=== PATIENT | female | born 1980 | race African-American/Black ===

== ENCOUNTER 2016-09-18 11:23 | Emergency (ER) | payer OTHER ==
[~2016-09-18] VITALS: Ht 175.3 cm; Wt 132.4 kg
[~2016-09-18 11:23] MED LIST: CARAFATE 1 GM TA1 G1 PO; CIPROFLOXACIN500 M1 PO; CLONAZEPAM 1 MG1 M1 PO; COMPAZINE5 MG PO; DESYREL100 MG PO; FLAGYL500 MG PO; GLYCOLAX POWDER17 G1 PO; IBUPROFEN 600600 M1 PO; LANTUS100 UNIT/M SUBQ; METFORMIN HCL500 MG PO; NORCO 5-325 TA1 EACH PO; PERCOCET 7.5-51 EACH; PHENERGAN 25 MG25 M1 PO; PROTONIX40 M2 PO; REGLAN 10 MG TA10 MG PO; ULTRAM 50MG TAB50 MG PO; VICODIN 5-5001 EACH PO; WELLBUTRIN SR150 MG PO; ZOCOR40 MG PO; ZOFRAN ODT4 MG PO; ZOFRAN4 MG PO; ZOLOFT100 MG PO
[2016-09-18] MEDS ORDERED: TESSALON PERLE100 MG PO (12:07)
[2016-09-18] MEDS ORDERED: FLONASE 0.05%50 MCG NASAL (12:07)
[2016-09-18] MEDS ORDERED: IBUPROFEN 600600 M1 PO (12:07)
[2016-09-18 12:26] VITALS: BP 126/76
== END 2016-09-18 12:28 | disposition home or self-care (01) ==
LOC: ER 11:23
DX: J01.90 Acute sinusitis, unspecified (principal); J06.9 Acute upper respiratory infection, unspecified; F17.210 Nicotine dependence, cigarettes, uncomplicated; F10.99 Alcohol use, unspecified with unspecified alcohol-induced disorder; F12.10 Cannabis abuse, uncomplicated; Z88.5 Allergy status to narcotic agent; Z90.49 Acquired absence of other specified parts of digestive tract

== ENCOUNTER 2016-10-01 07:25 | Emergency (ER) | payer OTHER ==
[~2016-10-01] VITALS: Ht 175.3 cm; Wt 130.2 kg
[~2016-10-01 07:25] MED LIST changes: +FLONASE 0.05%50 MCG NASAL; +TESSALON PERLE100 MG PO
[2016-10-01 08:39] VITALS: BP 138/69
[2016-10-01] MEDS ORDERED: AUGMENTIN 875-1 EACH PO (08:58)
[2016-10-01] MEDS ORDERED: IBUPROFEN 800800 M1 PO (08:58)
== END 2016-10-01 09:14 | disposition home or self-care (01) ==
LOC: ER 07:25
DX: J01.10 Acute frontal sinusitis, unspecified (principal); Z88.6 Allergy status to analgesic agent; F17.210 Nicotine dependence, cigarettes, uncomplicated; F10.99 Alcohol use, unspecified with unspecified alcohol-induced disorder

== ENCOUNTER 2017-08-02 04:40 | Emergency (ER) | payer OTHER ==
[~2017-08-02] VITALS: Ht 175.3 cm; Wt 146.5 kg
[~2017-08-02 04:40] MED LIST changes: +AUGMENTIN 875-1 EACH PO; +IBUPROFEN 800800 M1 PO
[2017-08-02] MEDS ORDERED: VICTOZA0.6 MG/0.1 SUBQ (04:46)
[2017-08-02 05:12] LABS: URINE BILIRUBIN NEGATIVE (Negative); URINE BLOOD NEGATIVE (Negative); URINE COLOR YELLOW; URINE GLUCOSE-RANDOM* NEGATIVE (Negative); URINE KETONES NEGATIVE (Negative); URINE LEUKOCYTES-REFLEX NEGATIVE (Negative); URINE PROTEIN (DIPSTICK) NEGATIVE (Negative); URINE SPECIFIC GRAVITY >= 1.030 (1.003-1.035); URINE UROBILINOGEN 0.2 E.U./dl (0.2-1.0)
[2017-08-02 05:19] LABS: ABSOLUTE NEUTROPHILS 2.9 thou/uL (1.4-8.2); BASOPHILS 0.9 % (0.0-2.0); EOSINOPHILS 0.9 % (0.0-3.0); HEMATOCRIT 40.7 % (37.0-47.0); HEMOGLOBIN 13.2 gm/dL (12.0-15.0); LYMPHOCYTES 40.4 % (24.0-44.0); MCH 27.8 pg (26.0-34.0); MCHC 32.3 g/dL (28.0-37.0); MCV 85.9 fL (80.0-100.0); PLATELET COUNT 159 thou/uL (150-400); POLYS 47.8 % (36.0-66.0); RBC 4.73 mil/uL (4.20-5.00); RDW 14.9 % (10.5-14.5); WBC 6.1 thou/uL (4.0-11.0)
[2017-08-02 05:22] LABS: MANUAL DIFF NO
[2017-08-02 05:25] LABS: CALCIUM 8.5 mg/dL (8.5-10.1); CREATININE 0.9 mg/dL (0.6-1.0)
[2017-08-02 05:31] LABS: ALBUMIN 3.1 g/dL (3.4-5.0); TOTAL BILIRUBIN 0.4 mg/dL (<0.1-1.0); TOTAL PROTEIN 6.8 g/dL (6.4-8.2)
[2017-08-02] MEDS ORDERED: NAPROSYN500 MG PO (08:51)
[2017-08-02] MEDS ORDERED: NORCO 7.5-3251 EACH PO (08:51)
[2017-08-02] MEDS ORDERED: SENNA-DOCUSATE1 EACH PO (08:51)
[2017-08-02 09:04] VITALS: BP 103/44
== END 2017-08-02 09:05 | disposition home or self-care (01) ==
LOC: ER 04:40
PROVIDERS: Emergency Medicine
DX: K57.90 Diverticulosis of intestine, part unspecified, without perforation or abscess without bleeding (principal); R19.00 Intra-abdominal and pelvic swelling, mass and lump, unspecified site; Z90.49 Acquired absence of other specified parts of digestive tract; Z98.890 Other specified postprocedural states; N80.9 Endometriosis, unspecified; Z88.5 Allergy status to narcotic agent; F17.210 Nicotine dependence, cigarettes, uncomplicated

== ENCOUNTER 2018-03-26 14:43 | Emergency (ER) | payer OTHER ==
[~2018-03-26] VITALS: Ht 172.7 cm; Wt 147.0 kg
[~2018-03-26 14:43] MED LIST changes: +NAPROSYN500 MG PO; +NORCO 7.5-3251 EACH PO; +SENNA-DOCUSATE1 EACH PO; +VICTOZA0.6 MG/0.1 SUBQ
[2018-03-26 15:09] LABS: URINE BILIRUBIN NEGATIVE (Negative); URINE BLOOD NEGATIVE (Negative); URINE CLARITY CLEAR; URINE COLOR YELLOW; URINE GLUCOSE-RANDOM* 2+ (Negative); URINE KETONES 3+ (Negative); URINE LEUKOCYTES-REFLEX NEGATIVE (Negative); URINE NITRITE-REFLEX NEGATIVE (Negative); URINE PROTEIN (DIPSTICK) 1+ (Negative); URINE SPECIFIC GRAVITY >= 1.030 (1.005-1.035); URINE UROBILINOGEN 0.2 E.U./dl (0.2-1.0)
[2018-03-26 15:19] LABS: BACTERIA-REFLEX 1-9 Few /HPF (None Seen); CASTS None Seen /LPF (None Seen); CRYSTALS None Seen /LPF (None Seen); SQUAMOUS >10 Many /LPF (0-3); URINE WBC-REFLEX 0-5 Rare /HPF (0-5)
[2018-03-26 15:20] LABS: URINE RBC 0-2 Rare /HPF (0-2)
[2018-03-26 15:53] LABS: ABSOLUTE NEUTROPHILS 9.3 thou/uL (1.4-8.2); BASOPHILS 0.5 % (0.0-2.0); LYMPHOCYTES 13.4 % (24.0-44.0); MCH 29.1 pg (26.0-34.0); MCHC 34.1 g/dL (28.0-37.0); MCV 85.5 fL (80.0-100.0); MONOCYTES 2.6 % (1.0-8.0); PLATELET COUNT 147 thou/uL (150-400); POLYS 83.5 % (36.0-66.0); RBC 5.14 mil/uL (4.20-5.00); RDW 14.4 % (10.5-14.5); WBC 11.1 thou/uL (4.0-11.0)
[2018-03-26 16:10] LABS: CALCIUM 8.7 mg/dL (8.5-10.1); CREATININE 0.8 mg/dL (0.6-1.0); POTASSIUM 3.9 mmol/L (3.5-5.1)
[2018-03-26 16:15] LABS: ALBUMIN 3.5 g/dL (3.4-5.0); TOTAL BILIRUBIN 0.4 mg/dL (<0.1-1.0); TOTAL PROTEIN 7.7 g/dL (6.4-8.2)
[2018-03-26] MEDS ORDERED: PHENERGAN 25 MG25 M1 PO (18:02)
[2018-03-26 18:36] VITALS: BP 129/64
== END 2018-03-26 18:40 | disposition home or self-care (01) ==
LOC: ER 14:43
PROVIDERS: Nurse Practitioner Family
DX: F12.188 Cannabis abuse with other cannabis-induced disorder (principal); Z90.49 Acquired absence of other specified parts of digestive tract; Z98.890 Other specified postprocedural states; F17.210 Nicotine dependence, cigarettes, uncomplicated; Z88.5 Allergy status to narcotic agent

== ENCOUNTER 2018-06-25 03:55 | Emergency (ER) | payer OTHER ==
[~2018-06-25] VITALS: Ht 175.3 cm; Wt 145.6 kg
[2018-06-25 04:16] LABS: URINE BILIRUBIN NEGATIVE (Negative); URINE BLOOD NEGATIVE (Negative); URINE CLARITY CLEAR; URINE COLOR YELLOW; URINE GLUCOSE-RANDOM* 3+ (Negative); URINE KETONES 3+ (Negative); URINE LEUKOCYTES-REFLEX NEGATIVE (Negative); URINE NITRITE-REFLEX NEGATIVE (Negative); URINE PROTEIN (DIPSTICK) NEGATIVE (Negative); URINE UROBILINOGEN 0.2 E.U./dl (0.2-1.0)
[2018-06-25 04:48] LABS: CALCIUM 9.6 mg/dL (8.5-10.1); CREATININE 1.1 mg/dL (0.6-1.0)
[2018-06-25 04:54] LABS: ALBUMIN 3.9 g/dL (3.4-5.0); MAGNESIUM 2.2 mg/dL (1.8-2.4); TOTAL BILIRUBIN 0.6 mg/dL (<0.1-1.0); TOTAL PROTEIN 8.4 g/dL (6.4-8.2)
[2018-06-25 05:37] LABS: ABSOLUTE NEUTROPHILS 7.1 thou/uL (1.4-8.2); BASOPHILS 0.5 % (0.0-2.0); HEMATOCRIT 45.1 % (37.0-47.0); HEMOGLOBIN 14.7 gm/dL (12.0-15.0); LYMPHOCYTES 13.4 % (24.0-44.0); MCH 28.3 pg (26.0-34.0); MCHC 32.6 g/dL (28.0-37.0); MCV 86.9 fL (80.0-100.0); MONOCYTES 2.3 % (1.0-8.0); PLATELET COUNT 173 thou/uL (150-400); POLYS 83.8 % (36.0-66.0); RBC 5.19 mil/uL (4.20-5.00); RDW 14.4 % (10.5-14.5); WBC 8.4 thou/uL (4.0-11.0)
[2018-06-25] MEDS ORDERED: LISINOPRIL-HCT1 EAC2 PO (07:13)
[2018-06-25] MEDS ORDERED: FARXIGA10 MG PO (07:14)
[2018-06-25] MEDS ORDERED: WELLBUTRIN XL300 MG PO (07:14)
[2018-06-25] MEDS ORDERED: BUSPIRONE HCL10 MG PO (07:15)
[2018-06-25] MEDS ORDERED: XANAX 0.25 MG0.25 MG PO (07:15)
[2018-06-25 07:49] LABS: CALCIUM 8.4 mg/dL (8.5-10.1); CREATININE 0.9 mg/dL (0.6-1.0); POTASSIUM 4.5 mmol/L (3.5-5.1)
[2018-06-25] MEDS ORDERED: PHENERGAN 25 MG25 M1 PO (08:29)
[2018-06-25] MEDS ORDERED: ZOFRAN ODT4 MG PO (08:29)
[2018-06-25] MEDS ORDERED: SENNA-DOCUSATE1 EACH PO (08:29)
[2018-06-25] MEDS ORDERED: NORCO 7.5-3251 EACH PO (08:29)
[2018-06-25] MEDS ORDERED: GLUCOTROL5 MG PO (08:42)
[2018-06-25 08:58] VITALS: BP 155/93
[2018-06-26] MEDS ORDERED: PANTOPRAZOLE SO40 M1 PO (10:33)
== END 2018-06-25 09:00 | disposition home or self-care (01) ==
LOC: ER 03:55
PROVIDERS: Emergency Medicine; Student in an Organized Health Care Education/Training Program
DX: G89.18 Other acute postprocedural pain (principal); R10.31 Right lower quadrant pain; R10.32 Left lower quadrant pain; R10.33 Periumbilical pain; F17.210 Nicotine dependence, cigarettes, uncomplicated; Z90.49 Acquired absence of other specified parts of digestive tract; Z88.5 Allergy status to narcotic agent; R11.2 Nausea with vomiting, unspecified

== ENCOUNTER 2018-06-25 13:43 | Inpatient (IN) | payer OTHER ==
[~2018-06-25] VITALS: Ht 175.3 cm; Wt 133.4 kg
[~2018-06-25 13:43] MED LIST changes: +BUSPIRONE HCL10 MG PO; +FARXIGA10 MG PO; +GLUCOTROL5 MG PO; +LISINOPRIL-HCT1 EAC2 PO; +WELLBUTRIN XL300 MG PO; +XANAX 0.25 MG0.25 MG PO
[2018-06-25 13:54] VITALS: BP 137/77
[2018-06-25 17:18] VITALS: BP 137/86
[2018-06-25 17:35] LABS: TSH 0.647 uIU/mL (0.358-3.740)
[2018-06-25 19:20] VITALS: BP 113/65
[2018-06-26 05:50] LABS: ABSOLUTE NEUTROPHILS 4.5 thou/uL (1.4-8.2); BASOPHILS 0.3 % (0.0-2.0); EOSINOPHILS 0.2 % (0.0-3.0); HEMATOCRIT 40.2 % (37.0-47.0); HEMOGLOBIN 13.5 gm/dL (12.0-15.0); LYMPHOCYTES 32.6 % (24.0-44.0); MCH 28.9 pg (26.0-34.0); MCHC 33.5 g/dL (28.0-37.0); MCV 86.1 fL (80.0-100.0); MONOCYTES 7.5 % (1.0-8.0); PLATELET COUNT 135 thou/uL (150-400); POLYS 59.4 % (36.0-66.0); RBC 4.67 mil/uL (4.20-5.00); RDW 14.6 % (10.5-14.5); WBC 7.5 thou/uL (4.0-11.0)
[2018-06-26 06:06] LABS: ALBUMIN 2.9 g/dL (3.4-5.0); CALCIUM 8.2 mg/dL (8.5-10.1); CREATININE 0.7 mg/dL (0.6-1.0); MAGNESIUM 2.2 mg/dL (1.8-2.4); POTASSIUM 3.6 mmol/L (3.5-5.1); TOTAL BILIRUBIN 0.6 mg/dL (<0.1-1.0); TOTAL PROTEIN 6.4 g/dL (6.4-8.2)
[2018-06-26 09:03] VITALS: BP 104/57
[2018-06-26] MEDS ORDERED: PANTOPRAZOLE SO40 M1 PO (10:33)
[2018-06-26 11:32] VITALS: BP 104/57
== END 2018-06-26 12:12 | disposition home or self-care (01) | DRG 638 ==
LOC: ER 13:43 → EROBS 15:05 → 4E 17:29
PROVIDERS: Nurse Practitioner
DX: E11.10 Type 2 diabetes mellitus with ketoacidosis without coma (principal); Z68.41 Body mass index [BMI] 40.0-44.9, adult; K57.90 Diverticulosis of intestine, part unspecified, without perforation or abscess without bleeding; I10 Essential (primary) hypertension; G89.29 Other chronic pain; M54.9 Dorsalgia, unspecified; F41.9 Anxiety disorder, unspecified; F32.9 Major depressive disorder, single episode, unspecified; E66.01 Morbid (severe) obesity due to excess calories; F12.10 Cannabis abuse, uncomplicated; Z71.51 Drug abuse counseling and surveillance of drug abuser; Z90.49 Acquired absence of other specified parts of digestive tract; Z88.6 Allergy status to analgesic agent; Z79.899 Other long term (current) drug therapy
CPT/HCPCS: 10183

== ENCOUNTER 2018-07-11 11:41 | Emergency (ER) | payer OTHER ==
[~2018-07-11] VITALS: Ht 175.3 cm; Wt 131.1 kg
[~2018-07-11 11:41] MED LIST changes: +PANTOPRAZOLE SO40 M1 PO
[2018-07-11 13:57] VITALS: BP 116/79
[2018-07-11] MEDS ORDERED: IBUPROFEN 800800 M1 PO (14:06)
== END 2018-07-11 14:20 | disposition home or self-care (01) ==
LOC: ER 11:41
DX: S93.491A Sprain of other ligament of right ankle, initial encounter (principal); S93.691A Other sprain of right foot, initial encounter; F17.210 Nicotine dependence, cigarettes, uncomplicated; I10 Essential (primary) hypertension; Z88.8 Allergy status to other drugs, medicaments and biological substances; Z88.5 Allergy status to narcotic agent; Z90.49 Acquired absence of other specified parts of digestive tract; Z98.890 Other specified postprocedural states; W10.9XXA Fall (on) (from) unspecified stairs and steps, initial encounter; Y92.89 Other specified places as the place of occurrence of the external cause; Y93.89 Activity, other specified; Y99.8 Other external cause status

== ENCOUNTER 2018-08-03 07:48 | Emergency (ER) | payer OTHER ==
[~2018-08-03] VITALS: Ht 175.3 cm; Wt 138.3 kg
[2018-08-03] MEDS ORDERED: PIOGLITAZONE15 MG (08:04)
[2018-08-03 08:21] LABS: ABSOLUTE NEUTROPHILS 4.9 thou/uL (1.4-8.2); BASOPHILS 0.6 % (0.0-2.0); EOSINOPHILS 0.1 % (0.0-3.0); HEMATOCRIT 46.9 % (37.0-47.0); LYMPHOCYTES 25.2 % (24.0-44.0); MCHC 34.2 g/dL (28.0-37.0); MCV 84.9 fL (80.0-100.0); MONOCYTES 4.5 % (1.0-8.0); PLATELET COUNT 208 thou/uL (150-400); POLYS 69.6 % (36.0-66.0); RBC 5.52 mil/uL (4.20-5.00); RDW 14.5 % (10.5-14.5); WBC 7.1 thou/uL (4.0-11.0)
[2018-08-03 08:36] LABS: CREATININE 0.9 mg/dL (0.6-1.0); POTASSIUM 3.7 mmol/L (3.5-5.1)
[2018-08-03 08:49] LABS: DIRECT BILIRUBIN 0.1 mg/dL (<0.1-0.3); TOTAL BILIRUBIN 0.3 mg/dL (<0.1-1.0); TOTAL PROTEIN 8.6 g/dL (6.4-8.2)
[2018-08-03 10:02] LABS: URINE BILIRUBIN NEGATIVE (Negative); URINE BLOOD NEGATIVE (Negative); URINE CLARITY CLEAR; URINE COLOR YELLOW; URINE GLUCOSE-RANDOM* 3+ (Negative); URINE KETONES 1+ (Negative); URINE LEUKOCYTES-REFLEX NEGATIVE (Negative); URINE NITRITE-REFLEX NEGATIVE (Negative); URINE PROTEIN (DIPSTICK) NEGATIVE (Negative); URINE SPECIFIC GRAVITY >= 1.030 (1.005-1.035); URINE UROBILINOGEN 0.2 E.U./dl (0.2-1.0)
[2018-08-03] MEDS ORDERED: ZOFRAN ODT4 MG PO (12:58)
[2018-08-03] MEDS ORDERED: NORCO 5-325 TA1 EACH PO (12:58)
[2018-08-03 13:05] VITALS: BP 147/80
== END 2018-08-03 13:16 | disposition home or self-care (01) ==
LOC: ER 07:48
PROVIDERS: Emergency Medicine
DX: N80.9 Endometriosis, unspecified (principal); R11.2 Nausea with vomiting, unspecified; F17.210 Nicotine dependence, cigarettes, uncomplicated; I10 Essential (primary) hypertension; Z88.8 Allergy status to other drugs, medicaments and biological substances; Z88.5 Allergy status to narcotic agent; Z90.49 Acquired absence of other specified parts of digestive tract; Z98.890 Other specified postprocedural states

== ENCOUNTER 2019-08-01 12:37 | Inpatient (IN) | payer OTHER ==
[~2019-08-01] VITALS: Ht 175.3 cm; Wt 156.9 kg
[2019-08-01 12:37] VITALS: BP 151/86
[~2019-08-01 12:37] MED LIST changes: +PIOGLITAZONE15 MG
[2019-08-01 13:41] LABS: ABSOLUTE NEUTROPHILS 6.3 thou/uL (1.4-8.2); BASOPHILS 0.5 % (0.0-2.0); EOSINOPHILS 0.1 % (0.0-3.0); HEMATOCRIT 44.4 % (37.0-47.0); HEMOGLOBIN 14.6 gm/dL (12.0-15.0); LYMPHOCYTES 23.1 % (24.0-44.0); MCH 27.9 pg (26.0-34.0); MCHC 32.9 g/dL (28.0-37.0); MCV 84.6 fL (80.0-100.0); MONOCYTES 4.9 % (1.0-8.0); PLATELET COUNT 241 thou/uL (150-400); POLYS 71.4 % (36.0-66.0); RBC 5.25 mil/uL (4.20-5.00); RDW 14.7 % (10.5-14.5); WBC 8.8 thou/uL (4.0-11.0)
[2019-08-01 13:53] LABS: CREATININE 0.8 mg/dL (0.6-1.0); POTASSIUM 5.1 mmol/L (3.5-5.1)
[2019-08-01 13:54] LABS: CALCIUM 10.2 mg/dL (8.5-10.1)
[2019-08-01 14:00] LABS: ALBUMIN 4.1 g/dL (3.4-5.0); TOTAL BILIRUBIN 0.4 mg/dL (<0.1-1.0); TOTAL PROTEIN 8.2 g/dL (6.4-8.2)
[2019-08-01 14:11] LABS: URINE BILIRUBIN NEGATIVE (Negative); URINE BLOOD NEGATIVE (Negative); URINE CLARITY CLEAR; URINE COLOR YELLOW; URINE GLUCOSE-RANDOM* NEGATIVE (Negative); URINE KETONES NEGATIVE (Negative); URINE LEUKOCYTES-REFLEX NEGATIVE (Negative); URINE NITRITE-REFLEX NEGATIVE (Negative); URINE PROTEIN (DIPSTICK) NEGATIVE (Negative); URINE UROBILINOGEN 0.2 E.U./dl (0.2-1.0)
[2019-08-01 16:07] VITALS: BP 149/95
[2019-08-01 19:33] VITALS: BP 135/83
[2019-08-01 19:41] VITALS: BP 144/73
[2019-08-01 20:05] VITALS: BP 143/69
[2019-08-02 04:21] VITALS: BP 126/57
[2019-08-02 06:05] LABS: ABSOLUTE NEUTROPHILS 8.1 thou/uL (1.4-8.2); BASOPHILS 0.2 % (0.0-2.0); HEMATOCRIT 43.7 % (37.0-47.0); HEMOGLOBIN 14.5 gm/dL (12.0-15.0); MCH 28.5 pg (26.0-34.0); MCHC 33.3 g/dL (28.0-37.0); MCV 85.7 fL (80.0-100.0); MONOCYTES 2.6 % (1.0-8.0); PLATELET COUNT 222 thou/uL (150-400); POLYS 83.2 % (36.0-66.0); RDW 14.5 % (10.5-14.5); WBC 9.7 thou/uL (4.0-11.0)
[2019-08-02 06:23] LABS: CALCIUM 9.2 mg/dL (8.5-10.1); CREATININE 0.9 mg/dL (0.6-1.0)
[2019-08-02 06:33] LABS: POTASSIUM 3.5 mmol/L (3.5-5.1)
[2019-08-02 07:09] VITALS: BP 118/46
--- NOTE | 2019-08-02 08:01 | EKG ---
[address] [place] [address] ELECTROCARDIOGRAM REPORT Name: MARK KOENIG Room #: 450-P ADM IN M.R.#: [id number] Admission: 08/01/19 Attend Phys: Asha Fry MD Discharge: Date of : 78 Report #: [id number] THIS REPORT FOR: //name// [facility] ED Test Date: 2019-08-01 Test Time: 14:15:32 Pat Name: MARK KOENIG Department: Room: [facility] Gender: F Heat Reader: Britany NAJERA : 1980 Requested By: Jere Alegre Order Number: [id number] MD: Vipin Lutz Measurements Intervals [place] Rate: 86 P: 78 [place]: 160 QRS: 55 QRSD: 103 T: 41 QT: 408 QTc: 488 Interpretive Statements Sinus rhythm Borderline prolonged QT interval No previous ECG available for comparison Electronically Signed On 08-02-2019 8:01:21 RAILROAD CROSSING PROTECTION MAINTAINER by Vipin Lutz [email or web address] <ELECTRONICALLY SIGNED> By: Vipin Lutz MD, [facility] 08/02/19 0801 1415 1415 Vipin Lutz MD, FACC /EPI
[2019-08-02] MEDS ORDERED: BENTYL 10 MG CA10 M1 PO (10:26)
[2019-08-02 11:13] VITALS: BP 118/46
[2019-08-02 13:53] VITALS: BP 118/46
== END 2019-08-02 14:49 | disposition home or self-care (01) | DRG 392 ==
LOC: ER 12:37 → 4W 15:48 → EROBS 15:48 → 4W 19:53
PROVIDERS: Emergency Medicine; Nurse Practitioner; ADMIT Hospitalist
DX: K52.9 Noninfective gastroenteritis and colitis, unspecified (principal); Z68.43 Body mass index [BMI] 50.0-59.9, adult; E11.9 Type 2 diabetes mellitus without complications; I10 Essential (primary) hypertension; G89.29 Other chronic pain; M54.9 Dorsalgia, unspecified; F17.210 Nicotine dependence, cigarettes, uncomplicated; F41.9 Anxiety disorder, unspecified; F32.9 Major depressive disorder, single episode, unspecified; E66.01 Morbid (severe) obesity due to excess calories; F12.10 Cannabis abuse, uncomplicated; R11.2 Nausea with vomiting, unspecified; E83.52 Hypercalcemia; Z90.49 Acquired absence of other specified parts of digestive tract; Z98.1 Arthrodesis status; Z88.6 Allergy status to analgesic agent; Y92.89 Other specified places as the place of occurrence of the external cause
CPT/HCPCS: 10047

== ENCOUNTER 2019-11-27 12:30 | Emergency (ER) | payer OTHER ==
[~2019-11-27] VITALS: Ht 175.3 cm; Wt 147.0 kg
[~2019-11-27 12:30] MED LIST changes: +BENTYL 10 MG CA10 M1 PO
[2019-11-27 13:37] LABS: BASOPHILS 0.9 % (0.0-2.0); EOSINOPHILS 0.8 % (0.0-3.0); HEMATOCRIT 42.4 % (37.0-47.0); LYMPHOCYTES 25.1 % (24.0-44.0); MCH 28.8 pg (26.0-34.0); MCV 87.5 fL (80.0-100.0); MONOCYTES 9.1 % (1.0-8.0); POLYS 64.1 % (36.0-66.0); RBC 4.84 mil/uL (4.20-5.00); WBC 6.7 thou/uL (4.0-11.0)
[2019-11-27 13:40] LABS: URINE BILIRUBIN NEGATIVE (Negative); URINE BLOOD NEGATIVE (Negative); URINE CLARITY CLEAR; URINE COLOR YELLOW; URINE GLUCOSE-RANDOM* NEGATIVE (Negative); URINE KETONES NEGATIVE (Negative); URINE LEUKOCYTES-REFLEX NEGATIVE (Negative); URINE NITRITE-REFLEX NEGATIVE (Negative); URINE PROTEIN (DIPSTICK) NEGATIVE (Negative); URINE SPECIFIC GRAVITY 1.015 (1.005-1.035); URINE UROBILINOGEN 0.2 E.U./dl (0.2-1.0)
[2019-11-27 13:45] LABS: CALCIUM 9.6 mg/dL (8.5-10.1); CREATININE 1.1 mg/dL (0.6-1.0); POTASSIUM 3.6 mmol/L (3.5-5.1)
[2019-11-27 13:50] LABS: AMP/METHAMP Negative (Negative); BARBITURATES Negative (Negative); BENZODIAZEPINES Negative (Negative); COCAINE Negative (Negative); METHADONE Negative (Negative); OPIATES Negative (Negative); PCP Negative (Negative)
[2019-11-27 13:50] LABS: ALBUMIN 3.6 g/dL (3.4-5.0); TOTAL BILIRUBIN 0.3 mg/dL (<0.1-1.0); TOTAL PROTEIN 7.4 g/dL (6.4-8.2)
[2019-11-27 14:02] LABS: PLATELET COUNT 155 thou/uL (150-400)
[2019-11-27] MEDS ORDERED: PHENERGAN 25 MG25 M1 PO (16:30)
[2019-11-27 16:40] VITALS: BP 132/96
--- NOTE | 2019-11-28 07:54 | EKG ---
[facility] [place] [address] [place] [address] ELECTROCARDIOGRAM REPORT Name: MARK KOENIG Room #: DEP [facility]#: [id number] Admission: 11/27/19 Attend Phys: Discharge: 11/27/19 Date of : 78 Report #: [id number] THIS REPORT FOR: cc: Raysa Barnes MD, Teresa MD Lundgren,Vipin Mark MD [facility] THIS REPORT FOR: //name// 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
== END 2019-11-27 16:40 | disposition home or self-care (01) ==
LOC: ER 12:30
PROVIDERS: Physician Assistant
DX: R10.12 Left upper quadrant pain (principal); R11.2 Nausea with vomiting, unspecified; F12.90 Cannabis use, unspecified, uncomplicated; I10 Essential (primary) hypertension; Z87.891 Personal history of nicotine dependence; Z88.5 Allergy status to narcotic agent; Z98.890 Other specified postprocedural states; Z98.51 Tubal ligation status; Z90.49 Acquired absence of other specified parts of digestive tract

== ENCOUNTER 2020-04-10 09:41 | Inpatient (IN) | payer OTHER ==
[~2020-04-10] VITALS: Ht 175.3 cm; Wt 141.5 kg
--- NOTE | ~2020-04-10 | P ---
[facility] [place] [address] [place] [address] PROCEDURE REPORT Name: MARK KOENIG Room #: [facility] IN M.R.#: [id number] Admission: 04/10/20 Attend Phys: Asha Fry MD Discharge: 04/12/20 Date of : 78 Report #: [id number] THIS REPORT FOR: cc: Raysa Barnes MD, Teresa MD Thesing, John A. MD ~ CC: Asha Barnes INPATIENT UPPER ENDOSCOPY REPORT BRIEF HISTORY: The patient is a 39-year-old woman with a long history of nausea and vomiting. PREOPERATIVE DIAGNOSES: 1. Nausea and vomiting. 2. Intermittent solid food dysphagia. POSTOPERATIVE DIAGNOSES: 1. Grade B erosive esophagitis. 2. Ndtydhst-ta-zjdmta pangastritis. 3. Small amount of retained bile in the stomach. 4. Patchy bulbar duodenitis. MEDICATIONS: Deep sedation with propofol per Anesthesia. SPECIMEN: Biopsies of gastritis. ESTIMATED BLOOD LOSS: 3 mL. PROCEDURE: EGD with biopsy, Young dilation. FINDINGS: Prior to propofol sedation, procedure of upper endoscopy and dilation was discussed with the patient as well as potential risks and its complications. She indicates she understands and desire that we proceed. DESCRIPTION OF PROCEDURE: With the patient in left lateral decubitus position, the Olympus video endoscope was inserted into the cervical esophagus under direct vision without difficulty. Examination of this organ through its entire length revealed normal esophageal mucosa down to the squamocolumnar junction. The mucosa was intact, but there were several erosions extending up from the squamocolumnar junction consistent with a grade B erosive esophagitis. There was no evidence of Hartman's mucosa, strictures or masses. She has complaints of dysphagia, but no strictures or rings were seen. A significant hiatus hernia was not present. The scope was advanced into the stomach, was examined on end view as well as retroflexed views. There was a pattern of a nukjefxa-lm-wqtiuv diffuse gastritis involving essentially the mucosa of the entire stomach. There [facility] [address] [place] [address] PROCEDURE REPORT Name: MARK KOENIG Room #: 212-[facility] IN M.R.#: [id number] Admission: 04/10/20 Attend Phys: Asha Fry MD Discharge: 04/12/20 Date of : 78 Report #: [id number] was also a small pool of bile into the fundus of stomach. No ulcers were seen. Upon retroflexion, no mass lesions were seen. Examination of the distal stomach also revealed diffuse gastritis. The pylorus, duodenal bulb, and postbulbar duodenal sweep were inspected. There was noted to be some patchy mucosal change in the duodenal bulb. The mucosa was intact and no ulcers were seen. At that point, the scope was slowly withdrawn and careful circumferential views confirmed the above findings. The patient tolerated the procedure well. Following procedure, she was dilated with passage of a 54-British Young dilator due to her complaints of dysphagia. There was no resistance. DISPOSITION: The patient with nausea and vomiting. Again, her history is fairly complex with chronic nausea and vomiting and also diabetes, use of narcotics and cannabis use. She has nausea and vomiting all the time. It does not occur in discrete episodes, so I doubt this represents cyclic vomiting syndrome. At this point in time, we will try to treat symptomatically. First of all, we will have her use a PPI twice daily. Secondly, since there was bile stained in the stomach and she has had a previous cholecystectomy, we will add sucralfate. Certainly, we will use transdermal scopolamine patch and also use ondansetron as needed. A gastric emptying study is a consideration, but she chronically uses narcotics, which will make interpretation of abnormal gastric emptying study very difficult. By: 1123 1228 Rock Salcido MD /ashely
[2020-04-10 10:01] VITALS: BP 152/90
[2020-04-10 11:14] LABS: BASOPHILS 0.4 % (0.0-2.0); EOSINOPHILS 0.3 % (0.0-3.0); HEMATOCRIT 46.4 % (37.0-47.0); HEMOGLOBIN 15.6 gm/dL (12.0-15.0); LYMPHOCYTES 13.7 % (24.0-44.0); MCH 28.7 pg (26.0-34.0); MCHC 33.6 g/dL (28.0-37.0); MCV 85.7 fL (80.0-100.0); PLATELET COUNT 250 thou/uL (150-400); POLYS 80.6 % (36.0-66.0); RBC 5.42 mil/uL (4.20-5.00); RDW 14.5 % (10.5-14.5); WBC 11.2 thou/uL (4.0-11.0)
[2020-04-10 12:27] LABS: ALBUMIN 4.2 g/dL (3.4-5.0); CALCIUM 9.9 mg/dL (8.5-10.1); CREATININE 1.2 mg/dL (0.6-1.0); TOTAL BILIRUBIN 0.4 mg/dL (0.2-1.0); TOTAL PROTEIN 8.6 g/dL (6.4-8.2)
[2020-04-10 12:38] LABS: POTASSIUM 2.3 mmol/L (3.5-5.1)
[2020-04-10 13:37] LABS: URINE BLOOD NEGATIVE (Negative); URINE CLARITY CLEAR; URINE COLOR YELLOW; URINE GLUCOSE-RANDOM* NEGATIVE (Negative); URINE KETONES 1+ (Negative); URINE LEUKOCYTES-REFLEX NEGATIVE (Negative); URINE NITRITE-REFLEX NEGATIVE (Negative); URINE PROTEIN (DIPSTICK) 2+ (Negative)
[2020-04-10 13:55] LABS: ICTOTEST (BILI CONFIRMATORY) Negative (Negative); URINE BILIRUBIN NEGATIVE (Negative)
[2020-04-10 13:57] LABS: AMP/METHAMP Negative (Negative); BARBITURATES Negative (Negative); BENZODIAZEPINES POSITIVE (Negative); COCAINE Negative (Negative); METHADONE Negative (Negative); OPIATES Negative (Negative); PCP Negative (Negative)
[2020-04-10 14:41] LABS: MUCUS >6 Heavy strn/LPF (None Seen); SQUAMOUS >10 Many /LPF (0-3)
[2020-04-10 14:42] LABS: BACTERIA-REFLEX 1-9 Few /HPF (None Seen); CRYSTALS None Seen /LPF (None Seen); HYALINE CASTS 0-3 Few /LPF (None Seen); URINE RBC 0-2 Rare /HPF (0-2); URINE WBC-REFLEX 0-5 Rare /HPF (0-5)
[2020-04-10 14:44] VITALS: BP 100/61
[2020-04-10 15:03] VITALS: BP 96/63
[2020-04-10 15:15] VITALS: BP 121/72
[2020-04-10 15:30] VITALS: BP 121/72
--- NOTE | 2020-04-10 15:57 | EKG ---
[facility] [place] [address] [place] [address] ELECTROCARDIOGRAM REPORT Name: MARK KOENIG Room #: 212-P ADM IN M.R.#: [id number] Admission: 04/10/20 Attend Phys: Asha Fry MD Discharge: Date of : 78 Report #: [id number] THIS REPORT FOR: cc: Raysa Barnes MD, Teresa MD Couchonnal, Luis F. MD ~ THIS REPORT FOR: //name// [facility] ED Test Date: 2020-04-10 Test Time: 11:32:05 Pat Name: MARK KOENIG Department: Room: [facility] Gender: F Financial Operations Analyst: ANTONY : 1980 Requested By: Jere Alegre Order Number: [id number] MD: Barry Viramontes Measurements Intervals [place] Rate: 77 P: 60 [place]: 159 QRS: 53 QRSD: 105 T: 47 QT: 431 QTc: 488 Interpretive Statements Sinus rhythm Probable left atrial enlargement Borderline prolonged QT interval Compared to ECG 11/27/2019 13:18:28 No significant changes Electronically Signed On 04-10-2020 15:57:01 CDT by Barry Viramontes [email or web address] <ELECTRONICALLY SIGNED> By: Barry Viramontes MD 04/10/20 1557 1132 1132 Barry Viramontes MD /EPI
--- NOTE | 2020-04-10 17:58 | NUR ---
PT CARE ASSUMED AT 0700. ASSESSMENTS CHARTED. MEDICATION CHARTED. CT ABD WITH CONTRAST PERFORMED POST ORAL CONTRAST CONSUMED. PT REGULARLY REQUESTS PAIN MEDICATION.
--- NOTE | 2020-04-10 18:04 | NUR ---
PT CARE ASSUMED AT 1525. ASSESSMENTS CHARTED, MEDICATION CHARTED. ADMISSION COMPLETE. PT ON CLR LIQUIDS; REQUESTED APPLE JUICE ONLY. IV IN LT EJ; POSITIONAL; IV OCCASIONALLY HIGH PRESSURES. ABD PAIN; HX OF DIVERTICULITIS. CT OF ABD/PELVIS AND CXR ABD CHEST PERFORMED.
[2020-04-10 20:14] VITALS: BP 117/46
[2020-04-11 05:36] VITALS: BP 95/58
[2020-04-11 06:08] LABS: CALCIUM 8.3 mg/dL (8.5-10.1); CREATININE 1.1 mg/dL (0.6-1.0)
--- NOTE | 2020-04-11 06:12 | NUR ---
SLEPT MOST OF SHIFT. UP AD YAHIR IN ROOM WITH STEADY GAIT. URINE OUTPUT 400CC THIS SHIFT DARK ZACARIAS URINE. NO FURTHER COMPLAINTS OF PAIN OR NAUSEA SINCE BEDTIME. TURNS SELF. REQUEST THAT IV BE CHANGED FROM LEFT EJ TODAY DURING DAYTIME TO BE MORE COMFORTABLE. INFORMED WILL HAVE IV TEAM CALLED. CONTINUE TO ASSES.
[2020-04-11 08:00] VITALS: BP 143/75
[2020-04-11 11:00] VITALS: BP 125/63
--- NOTE | 2020-04-11 14:41 | NUR ---
Case opened to follow for dc planning needs. Consult rec'd due to pt pay status. [facility] referral initiated;however typewriter ribbon winder spoke with the pt and she reports having insurance through her employer. She notes that she has been on medical leave but recently got a new insurance card. She believes it is with [employer] but does not have it with her. She reports having script coverage and a pcp Dr. Raysa Barnes for followup care. She denies any dc needs. UR nurse updated regarding and notes admitting is aware of possible coverage. Pt is up ad pari in her room. Likely dc tomorrow pending GI workup. Will remain available should needs arise.
[2020-04-11 16:36] VITALS: BP 108/49
--- NOTE | 2020-04-11 17:20 | NUR ---
ASSUMMED PT CARE AT APPROXIMATELY 0700. PT A&O X4. ASSESSMENT CHARTED. FALL PRECAUTIONS IN PLACE. PT ANXIOUS/RESTLESS AT BEGINNING OF SHIFT. PT STATED SHE HAD NAUSEA AND PAIN. INFORMED DR. POLO. GAVE ANALGESICS AND ANTI-EMETIC. PT STATED ANALGESICS AND ANTI-EMETIC HELPED RELIEVE NAUSEA AND PAIN. PT HAVING EGD TOMORROW. PT COMFORTABLE. PT DENIES HAVING FURTHER CONCERNS. VITAL SIGNS STABLE. BLOOD SUGARS STABLE.
[2020-04-11 19:50] VITALS: BP 102/63
[2020-04-12 04:30] VITALS: BP 102/57
--- NOTE | 2020-04-12 06:01 | NUR ---
PATIENT INITIALLY VOICED FRUSTRATION ABOUT LACK OF PAIN AND NAUSEA MANAGEMENT PROGRESS. SHE RESPONDED WELL TO THERAPEUTIC COMMUNICATION, QUIET AND DARK ENVIRONMENT, WELL MEDICATION MANAGEMENT OF ABDOMINAL PAIN AND NAUSEA. SHE SLEPT THROUGH THE NIGHT WITHOUT INCIDENT. SHE WAS NPO AFTER MIDNIGHT FOR A SCOPE PROCEDURE ON 04/12.
[2020-04-12 06:02] LABS: MCH 28.6 pg (26.0-34.0); MCHC 32.7 g/dL (28.0-37.0); MCV 87.6 fL (80.0-100.0); RBC 4.45 mil/uL (4.20-5.00); RDW 14.6 % (10.5-14.5); WBC 5.9 thou/uL (4.0-11.0)
[2020-04-12 06:24] LABS: CALCIUM 8.5 mg/dL (8.5-10.1); POTASSIUM 4.3 mmol/L (3.5-5.1)
[2020-04-12 06:36] LABS: HEMOGLOBIN 12.7 gm/dL (12.0-15.0)
[2020-04-12 07:15] VITALS: BP 116/68
[2020-04-12] MEDS ORDERED: TRAMADOL 50 MG50 MG PO (09:59)
[2020-04-12] MEDS ORDERED: PANTOPRAZOLE SO40 M1 PO (12:27)
[2020-04-12] MEDS ORDERED: CARAFATE1 GM PO (12:27)
[2020-04-12 12:40] VITALS: BP 116/68
[2020-04-12] MEDS ORDERED: TRANSDERM-SCOP1 EACH TRANSDERM (12:55)
--- NOTE | 2020-04-12 13:35 | NUR ---
PT CARE ASSUMED APPROX 0700. ASSESSMENT CHARTED. PT DENIES PAIN, SOA, N/V. VSS. UP WITH SBA AND STEADY GAIT. COMPLETED EGD WITHOUT ISSUE THIS MORNING. PT DISCHARGED AT THIS TIME. AGREEABLE TO GO HOME AND AGREEABLE TO F/U WITH GI DR FOR RESULTS OUTPT. PT DENIES QUESTIONS OR CONCERNS REGARDING POST HOSPITAL CARES. IV OUT, TELE OFF. WALKED OUT TO TRANSPORTATION. PT WAS ENCOURAGED TO USE WHEELCHAIR BUT SHE INSISTED THAT SHE WALK.
--- NOTE | 2020-04-13 17:06 | PATH ---
[facility] [place] [address] PATHOLOGY RPT PROCEDURE Name: MADINA KOENIG Room #: 212-P DIS IN M.R.#: [id number] Admission: 04/10/20 Date of : 78 Discharge: 04/12/20 Report #: [id number] Path Case #: [id number] [facility] Accession Number: [id number] . 01 Material submitted: . stomach - BX OF GASTRITIS . 01 Clinical history: . N/V, dysphagia, R/O H. pylori Hypokalemia, abdominal pain, marijuana abuse . 02 Diagnosis: Gastric mucosa, gastritis, rule out H. pylori, endoscopic biopsy: - Moderate reactive gastropathy. - Negative for intestinal metaplasia or atrophy. - Negative for Helicobacter pylori (properly controlled immunohistochemical stain performed). (IUV:pit 04/13/2020) QTP 04/13/2020 1302 Local . 02 Electronically signed: . Kandice Lugo MD, Pathologist NPI- [id number] . 01 Gross description: . The specimen is received in formalin, labeled "Madina Koenig, biopsy of gastritis, R/O H. pylori". Received are four segments of pale brandon soft tissue ranging in size from 0.3 to 0.8 cm in maximum dimensions. The specimen is submitted entirely in cassette A1. (CAA; 04/12/2020) QAC/QAC 04/12/2020 1637 Local . 02 Pathologist provided ICD-10: K31.9 . 02 CPT . 832519, [id number] Specimen Comment: A courtesy copy of this report has been sent to [phone] Specimen Comment: Report sent to Performed at: [address] [id number] MD Josesito Lancaster MD Phone: [phone] Performed at: [address] [id number] MD Kandice Lugo MD Phone: [phone]
== END 2020-04-12 13:52 | disposition home or self-care (01) | DRG 74 ==
LOC: ER 09:41 → 2N 14:55 → EROBS 14:55 → 2N 15:07
PROVIDERS: Emergency Medicine; Nurse Practitioner; Physician Assistant; ADMIT Hospitalist; ATTEND Hospitalist
PROC: 0DB68ZX Excision of Stomach, Via Natural or Artificial Opening Endoscopic, Diagnostic (ICD-10-PCS; principal; 2020-04-10)
PROC: 0D758ZZ Dilation of Esophagus, Via Natural or Artificial Opening Endoscopic (ICD-10-PCS; principal; 2020-04-10)
DX: E11.43 Type 2 diabetes mellitus with diabetic autonomic (poly)neuropathy (principal); K22.10 Ulcer of esophagus without bleeding; N17.9 Acute kidney failure, unspecified; F11.20 Opioid dependence, uncomplicated; Z68.42 Body mass index [BMI] 45.0-49.9, adult; K29.80 Duodenitis without bleeding; K29.70 Gastritis, unspecified, without bleeding; I10 Essential (primary) hypertension; K57.90 Diverticulosis of intestine, part unspecified, without perforation or abscess without bleeding; E87.6 Hypokalemia; G89.29 Other chronic pain; M54.9 Dorsalgia, unspecified; F12.90 Cannabis use, unspecified, uncomplicated; F41.9 Anxiety disorder, unspecified; R11.10 Vomiting, unspecified; F32.9 Major depressive disorder, single episode, unspecified; E66.9 Obesity, unspecified; K31.84 Gastroparesis; R47.02 Dysphasia; Z20.828 Contact with and (suspected) exposure to other viral communicable diseases; Z90.49 Acquired absence of other specified parts of digestive tract; Z88.6 Allergy status to analgesic agent; Z87.891 Personal history of nicotine dependence; Z79.899 Other long term (current) drug therapy
CPT/HCPCS: 10194; 62110; 62900; 70005

== ENCOUNTER 2020-06-21 09:42 | Emergency (ER) | payer BC, OTHER ==
[~2020-06-21] VITALS: Ht 175.3 cm; Wt 141.1 kg
[~2020-06-21 09:42] MED LIST changes: +CARAFATE1 GM PO; +TRAMADOL 50 MG50 MG PO; +TRANSDERM-SCOP1 EACH TRANSDERM
[2020-06-21 13:20] LABS: ABSOLUTE NEUTROPHILS 9.7 thou/uL (1.4-8.2); BASOPHILS 0.3 % (0.0-2.0); EOSINOPHILS 0.1 % (0.0-3.0); HEMATOCRIT 46.5 % (37.0-47.0); HEMOGLOBIN 15.4 gm/dL (12.0-15.0); LYMPHOCYTES 13.3 % (24.0-44.0); MCH 28.5 pg (26.0-34.0); MCHC 33.1 g/dL (28.0-37.0); MCV 86.3 fL (80.0-100.0); MONOCYTES 4.3 % (1.0-8.0); RBC 5.39 mil/uL (4.20-5.00); WBC 11.9 thou/uL (4.0-11.0)
[2020-06-21 13:37] LABS: CALCIUM 9.9 mg/dL (8.5-10.1); CREATININE 0.8 mg/dL (0.6-1.0); POTASSIUM 3.7 mmol/L (3.5-5.1)
[2020-06-21 13:40] LABS: PLATELET COUNT 297 thou/uL (150-400)
[2020-06-21 13:43] LABS: ALBUMIN 4.4 g/dL (3.4-5.0)
[2020-06-21 13:55] LABS: URINE BLOOD 1+ (Negative); URINE CLARITY CLEAR; URINE GLUCOSE-RANDOM* NEGATIVE (Negative); URINE KETONES 2+ (Negative); URINE LEUKOCYTES-REFLEX NEGATIVE (Negative); URINE NITRITE-REFLEX NEGATIVE (Negative); URINE PROTEIN (DIPSTICK) TRACE (Negative); URINE SPECIFIC GRAVITY >= 1.030 (1.005-1.035); URINE UROBILINOGEN 0.2 E.U./dl (0.2-1.0)
[2020-06-21 13:57] LABS: TOTAL BILIRUBIN 0.5 mg/dL (0.2-1.0)
[2020-06-21 14:01] LABS: URINE BILIRUBIN NEGATIVE (Negative)
[2020-06-21 14:02] LABS: ICTOTEST (BILI CONFIRMATORY) Negative (Negative); URINE COLOR CLOUDY
[2020-06-21 14:06] LABS: AMORPHOUS URATES Many /LPF (None Seen); CASTS None Seen /LPF (None Seen); SQUAMOUS 0-3 Few /LPF (0-3); URINE RBC 0-2 Rare /HPF (0-2); URINE WBC-REFLEX 0-5 Rare /HPF (0-5)
[2020-06-21 14:07] LABS: BACTERIA-REFLEX 1-9 Few /HPF (None Seen)
[2020-06-21] MEDS ORDERED: ONDANSETRON HCL4 M2 PO (14:47)
[2020-06-21] MEDS ORDERED: NORCO 5-325 TA1 EAC2 PO (14:47)
[2020-06-21 14:57] VITALS: BP 107/57
== END 2020-06-21 14:57 | disposition home or self-care (01) ==
LOC: ER 09:42
PROVIDERS: Physician Assistant
DX: R10.84 Generalized abdominal pain (principal); R11.2 Nausea with vomiting, unspecified; I10 Essential (primary) hypertension; Z90.49 Acquired absence of other specified parts of digestive tract; Z87.891 Personal history of nicotine dependence; Z79.899 Other long term (current) drug therapy; Z88.5 Allergy status to narcotic agent

== ENCOUNTER 2020-10-22 08:59 | Emergency (ER) | payer BC, OTHER ==
[~2020-10-22] VITALS: Ht 175.3 cm; Wt 134.3 kg
[~2020-10-22 08:59] MED LIST changes: +NORCO 5-325 TA1 EAC2 PO; +ONDANSETRON HCL4 M2 PO
[2020-10-22 10:14] LABS: ABSOLUTE NEUTROPHILS 4.8 thou/uL (1.4-8.2); BASOPHILS 0.8 % (0.0-2.0); HEMATOCRIT 48.5 % (37.0-47.0); LYMPHOCYTES 22.5 % (24.0-44.0); MCH 27.6 pg (26.0-34.0); MCV 83.6 fL (80.0-100.0); MONOCYTES 7.3 % (1.0-8.0); PLATELET COUNT 262 thou/uL (150-400); POLYS 69.4 % (36.0-66.0); RDW 14.7 % (10.5-14.5); WBC 6.9 thou/uL (4.0-11.0)
[2020-10-22 10:27] LABS: CALCIUM 10.7 mg/dL (8.5-10.1); CREATININE 1.2 mg/dL (0.6-1.0); POTASSIUM 3.4 mmol/L (3.5-5.1)
[2020-10-22 10:33] LABS: ALBUMIN 4.6 g/dL (3.4-5.0); TOTAL BILIRUBIN 0.6 mg/dL (0.2-1.0); TOTAL PROTEIN 9.2 g/dL (6.4-8.2)
[2020-10-22 11:00] LABS: URINE BILIRUBIN NEGATIVE (Negative); URINE BLOOD NEGATIVE (Negative); URINE CLARITY CLEAR; URINE COLOR YELLOW; URINE GLUCOSE-RANDOM* NEGATIVE (Negative); URINE KETONES TRACE (Negative); URINE LEUKOCYTES-REFLEX NEGATIVE (Negative); URINE NITRITE-REFLEX NEGATIVE (Negative); URINE PROTEIN (DIPSTICK) 1+ (Negative); URINE SPECIFIC GRAVITY >= 1.030 (1.005-1.035); URINE UROBILINOGEN 0.2 E.U./dl (0.2-1.0)
[2020-10-22] MEDS ORDERED: ZOFRAN ODT4 MG PO (11:48)
[2020-10-22] MEDS ORDERED: BENTYL 10 MG CA10 M1 PO (11:48)
[2020-10-22 11:50] VITALS: BP 103/53
[2020-10-22 12:04] LABS: CASTS None Seen /LPF (None Seen); SQUAMOUS 4-10 Moderate /LPF (0-3)
[2020-10-22 12:05] LABS: BACTERIA-REFLEX 1-9 Few /HPF (None Seen); CRYSTALS None Seen /LPF (None Seen); MUCUS 4-6 Moderate strn/LPF (None Seen); URINE RBC 0-2 Rare /HPF (0-2); URINE WBC-REFLEX 0-5 Rare /HPF (0-5)
== END 2020-10-22 12:00 | disposition home or self-care (01) ==
LOC: ER 08:59
PROVIDERS: Emergency Medicine
DX: R11.2 Nausea with vomiting, unspecified (principal); I10 Essential (primary) hypertension; Z79.899 Other long term (current) drug therapy; Z87.891 Personal history of nicotine dependence; Z88.5 Allergy status to narcotic agent

== ENCOUNTER 2021-06-16 06:57 | Emergency (ER) | payer OTHER ==
[~2021-06-16] VITALS: Ht 175.3 cm; Wt 131.1 kg
[2021-06-16 08:04] LABS: URINE BLOOD 2+ (Negative); URINE CLARITY CLOUDY; URINE COLOR YELLOW; URINE GLUCOSE-RANDOM* NEGATIVE (Negative); URINE KETONES 2+ (Negative); URINE LEUKOCYTES-REFLEX NEGATIVE (Negative); URINE NITRITE-REFLEX NEGATIVE (Negative); URINE PROTEIN (DIPSTICK) 3+ (Negative); URINE SPECIFIC GRAVITY >= 1.030 (1.005-1.035); URINE UROBILINOGEN 0.2 E.U./dl (0.2-1.0)
[2021-06-16 08:30] LABS: ICTOTEST (BILI CONFIRMATORY) Negative (Negative); URINE BILIRUBIN NEGATIVE (Negative)
[2021-06-16 08:40] LABS: HEMATOCRIT 45.5 % (37.0-47.0); HEMOGLOBIN 14.9 gm/dL (12.0-15.0); MCH 27.8 pg (26.0-34.0); MCHC 32.7 g/dL (28.0-37.0); RBC 5.35 mil/uL (4.20-5.00); RDW 14.8 % (10.5-14.5); WBC 11.2 thou/uL (4.0-11.0)
[2021-06-16 08:55] LABS: CALCIUM 9.2 mg/dL (8.5-10.1); CREATININE 0.8 mg/dL (0.6-1.0); POTASSIUM 3.4 mmol/L (3.5-5.1)
[2021-06-16 09:01] LABS: ALBUMIN 4.2 g/dL (3.4-5.0); DIRECT BILIRUBIN 0.1 mg/dL (<0.1-0.2); TOTAL BILIRUBIN 0.6 mg/dL (0.2-1.0)
[2021-06-16 09:27] LABS: CASTS None Seen /LPF (None Seen); HYALINE CASTS 0-3 Few /LPF (None Seen); WBC CASTS 0-3 Few /LPF (None Seen)
[2021-06-16 09:28] LABS: CRYSTALS None Seen /LPF (None Seen); SQUAMOUS 4-10 Moderate /LPF (0-3)
[2021-06-16 09:29] LABS: URINE WBC-REFLEX 6-15 Few /HPF (0-5)
[2021-06-16 09:30] LABS: URINE RBC 3-10 Few /HPF (NONE SEEN)
[2021-06-16] MEDS ORDERED: LIDOCAINE VISC100 ML PO (12:13)
[2021-06-16] MEDS ORDERED: CARAFATE1 GM PO (12:13)
[2021-06-16 12:37] VITALS: BP 108/62
== END 2021-06-16 12:38 | disposition home or self-care (01) ==
LOC: ER 06:57
PROVIDERS: Emergency Medicine
DX: K27.9 Peptic ulcer, site unspecified, unspecified as acute or chronic, without hemorrhage or perforation (principal); Z20.822 Contact with and (suspected) exposure to COVID-19; I10 Essential (primary) hypertension; Z90.49 Acquired absence of other specified parts of digestive tract; Z98.51 Tubal ligation status; Z79.899 Other long term (current) drug therapy; Z87.891 Personal history of nicotine dependence; Z88.5 Allergy status to narcotic agent; Z98.890 Other specified postprocedural states

== ENCOUNTER 2021-08-15 03:14 | Emergency (ER) | payer OTHER ==
[~2021-08-15] VITALS: Ht 175.3 cm; Wt 133.4 kg
[~2021-08-15 03:14] MED LIST changes: +LIDOCAINE VISC100 ML PO
[2021-08-15 03:55] LABS: ABSOLUTE NEUTROPHILS 8.3 thou/uL (1.4-8.2); BASOPHILS 0.4 % (0.0-2.0); EOSINOPHILS 0.1 % (0.0-3.0); HEMOGLOBIN 15.7 gm/dL (12.0-15.0); LYMPHOCYTES 16.7 % (24.0-44.0); MCH 27.9 pg (26.0-34.0); MCHC 32.8 g/dL (28.0-37.0); MCV 85.1 fL (80.0-100.0); MONOCYTES 6.8 % (1.0-8.0); PLATELET COUNT 166 thou/uL (150-400); RBC 5.64 mil/uL (4.20-5.00); RDW 14.3 % (10.5-14.5)
[2021-08-15 04:04] LABS: CALCIUM 9.6 mg/dL (8.5-10.1); POTASSIUM 3.5 mmol/L (3.5-5.1)
[2021-08-15 04:11] LABS: ALBUMIN 4.3 g/dL (3.4-5.0); TOTAL BILIRUBIN 0.7 mg/dL (0.2-1.0); TOTAL PROTEIN 8.4 g/dL (6.4-8.2)
[2021-08-15 05:45] LABS: URINE BILIRUBIN NEGATIVE (Negative); URINE BLOOD TRACE (Negative); URINE CLARITY CLEAR; URINE COLOR YELLOW; URINE GLUCOSE-RANDOM* 2+ (Negative); URINE KETONES 2+ (Negative); URINE LEUKOCYTES-REFLEX NEGATIVE (Negative); URINE NITRITE-REFLEX NEGATIVE (Negative); URINE PROTEIN (DIPSTICK) NEGATIVE (Negative); URINE SPECIFIC GRAVITY 1.015 (1.005-1.035); URINE UROBILINOGEN 0.2 E.U./dl (0.2-1.0)
[2021-08-15] MEDS ORDERED: ZOFRAN ODT4 MG PO (05:49)
[2021-08-15] MEDS ORDERED: NEXIUM40 MG PO (05:49)
[2021-08-15] MEDS ORDERED: viscous lidocaine PO (05:49)
[2021-08-15 06:08] VITALS: BP 191/112
--- NOTE | 2021-08-15 08:53 | EKG ---
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
== END 2021-08-15 06:09 | disposition home or self-care (01) ==
LOC: ER 03:14
PROVIDERS: Emergency Medicine
DX: R10.13 Epigastric pain (principal); K31.84 Gastroparesis; I10 Essential (primary) hypertension; K21.9 Gastro-esophageal reflux disease without esophagitis; F12.90 Cannabis use, unspecified, uncomplicated; Z98.890 Other specified postprocedural states; Z90.49 Acquired absence of other specified parts of digestive tract; Z98.51 Tubal ligation status; Z79.891 Long term (current) use of opiate analgesic; Z79.899 Other long term (current) drug therapy; Z88.6 Allergy status to analgesic agent; Z88.5 Allergy status to narcotic agent; Z87.891 Personal history of nicotine dependence